=== PATIENT | male | born 1945 | race Caucasian/White ===

== ENCOUNTER 2016-06-08 16:04 | Emergency (ER) | payer OTHER ==
[~2016-06-08] VITALS: Ht 177.8 cm; Wt 76.7 kg
[2016-06-08 16:49] LABS: ADD MIUA? YES; BILIRUBIN NEGATIVE; BLOOD LARGE; COLOR AMBER ((YELLOW)); GLUCOSE (STRIP) NEGATIVE; KETONES 5; LEUKOCYTES SMALL; NITRITE NEGATIVE; PROTEIN (STRIP) >=500; SPECIFIC GRAVITY 1.019 (1.000-1.030); UROBILINOGEN 0.2 MG/DL (0.2-1.0)
[2016-06-08 16:59] LABS: RED BLOOD CELLS TNTC /HPF (0-5); UCUL ADDED? YES
[2016-06-08 17:22] LABS: MCH 31.4 PG (29.0-34.0); MCHC 34.3 G/DL (30.0-36.0); MCV 91.4 FL (86-99); PLATELET COUNT 179 K/uL (156-360); RBC DIS.WIDTH-CV 12.4 % (11.8-14.6); RBC DIS.WIDTH-SD 40.4 % (39-53); RED BLOOD COUNT 4.05 M/uL (4.00-5.50); WHITE BLOOD COUNT 6.3 K/uL (4.1-10.2)
[2016-06-08 17:29] LABS: CHLORIDE 105 mEq/L (99-109); POTASSIUM 3.7 mEq/L (3.7-5.4); SODIUM 141 mEq/L (136-147)
[2016-06-08 17:31] LABS: GLUCOSE 105 mg/dL (70-99)
[2016-06-08 17:33] LABS: ANION GAP 12 MEQ/L (2-14)
[2016-06-08 17:35] LABS: GFR ESTIMATE (CALCULATED) 40 mL/min/
[2016-06-08 17:36] LABS: UREA NITROGEN (BUN) 18 mg/dL (9-23)
[2016-06-08] MEDS ORDERED: ULTRAM50 MG PO (18:31)
[2016-06-08 19:04] VITALS: BP 171/78
== END 2016-06-08 19:06 | disposition home or self-care (01) ==
LOC: EME 16:04
DX: R10.9 Unspecified abdominal pain (principal); R31.9 Hematuria, unspecified
CPT/HCPCS: 74176; 80048; 81003; 85027; 87086 GA; 99281; 99283

== ENCOUNTER 2016-06-30 19:43 | Inpatient (IN) | payer OTHER ==
[~2016-06-30] VITALS: Ht 179.1 cm; Wt 72.8 kg
[~2016-06-30 19:43] MED LIST: ULTRAM50 MG PO
[2016-06-30 20:23] LABS: HEMATOCRIT 30.5 % (38.0-50.0); MCH 31.1 PG (29.0-34.0); MCHC 35.1 G/DL (30.0-36.0); MCV 88.7 FL (86-99); MEAN PLAT.VOLUME 8.6 uM^3 (9.0-12.4); PLATELET COUNT 215 K/uL (156-360); RBC DIS.WIDTH-CV 11.1 % (11.8-14.6); RBC DIS.WIDTH-SD 35.8 % (39-53); RED BLOOD COUNT 3.44 M/uL (4.00-5.50); WHITE BLOOD COUNT 7.2 K/uL (4.1-10.2)
[2016-06-30 20:34] LABS: CHLORIDE 89 mEq/L (99-109); POTASSIUM 3.4 mEq/L (3.7-5.4); SODIUM 122 mEq/L (136-147)
[2016-06-30 20:35] LABS: GLUCOSE 119 mg/dL (70-99)
[2016-06-30 20:37] LABS: ANION GAP 11 MEQ/L (2-14)
[2016-06-30 20:39] LABS: GFR ESTIMATE (CALCULATED) > 59 mL/min/
[2016-06-30 20:40] LABS: UREA NITROGEN (BUN) 12 mg/dL (9-23)
[2016-06-30 23:34] LABS: TOTAL BILIRUBIN 0.9 mg/dL (0.0-1.0)
[2016-06-30 23:35] LABS: ALKALINE PHOSPHATASE 77 IU/L (3-129)
[2016-06-30 23:37] LABS: DIRECT BILIRUBIN 0.3 mg/dL (0.0-0.3)
[2016-06-30 23:39] LABS: LIPASE 20 U/L (1.0-51.0)
[2016-06-30 23:44] LABS: TROP-I INTERPRETATION NEGATIVE; TROPONIN-I < 0.01 ng/mL (0.0-0.30)
[2016-07-01] MEDS ORDERED: TAMSULOSIN HCL0.4 MG PO (00:11)
[2016-07-01] MEDS ORDERED: BETHANECHOL CHL25 MG PO (00:12)
[2016-07-01] MEDS ORDERED: PROSCAR5 MG PO (00:12)
[2016-07-01] MEDS ORDERED: [UNRECOGNIZED DRUG - SUPPLY] MC (00:12)
[2016-07-01 00:18] LABS: CREATINE KINASE 113 IU/L (1-294)
[2016-07-01 01:33] LABS: ADD MIUA? YES; BILIRUBIN NEGATIVE; BLOOD MODERATE; COLOR STRAW ((YELLOW)); GLUCOSE (STRIP) NEGATIVE; KETONES NEGATIVE; LEUKOCYTES LARGE; NITRITE NEGATIVE; PROTEIN (STRIP) NEGATIVE; SPECIFIC GRAVITY 1.002 (1.000-1.030); UROBILINOGEN 0.2 MG/DL (0.2-1.0)
[2016-07-01 02:03] LABS: EPITHELIAL CELLS RARE /HPF; MUCUS NONE SEEN /LPF; RED BLOOD CELLS 0-5 /HPF (0-5); WHITE BLOOD CELLS 20-30 /HPF (0-5)
[2016-07-01 02:04] LABS: BACTERIA 1+ /HPF; CASTS NONE SEEN /LPF; CRYSTALS NONE SEEN; UCUL ADDED? NO
[2016-07-01 03:50] VITALS: BP 124/74; BP 167/75
[2016-07-01 07:29] VITALS: BP 172/73
[2016-07-01 10:36] LABS: HEMATOCRIT 29.9 % (38.0-50.0); MCH 30.7 PG (29.0-34.0); MCHC 34.4 G/DL (30.0-36.0); MEAN PLAT.VOLUME 8.7 uM^3 (9.0-12.4); PLATELET COUNT 197 K/uL (156-360); RBC DIS.WIDTH-CV 11.6 % (11.8-14.6); RBC DIS.WIDTH-SD 37.3 % (39-53); RED BLOOD COUNT 3.36 M/uL (4.00-5.50); WHITE BLOOD COUNT 5.1 K/uL (4.1-10.2)
[2016-07-01 11:06] LABS: ANION GAP 7 MEQ/L (2-14); CHLORIDE 105 MEQ/L (99-109); GFR ESTIMATE (CALCULATED) > 59 mL/min/; GLUCOSE 105 mg/dL (70-99); POTASSIUM 4.6 MEQ/L (3.7-5.4); SAMPLE HEMOLYSIS CHECK 0; SAMPLE ICTERIC CHECK 0; SAMPLE LIPEMIA CHECK 0; SODIUM 136 MEQ/L (136-147); UREA NITROGEN (BUN) 12 mg/dL (9-23)
[2016-07-01 11:14] VITALS: BP 170/72
[2016-07-01] MEDS ORDERED: CEFDINIR300 MG PO (15:26)
== END 2016-07-01 16:29 | disposition home or self-care (01) | DRG 726 ==
LOC: EME 19:43 → EDOF 07-01 02:30 → 2EAST 07-01 03:53
PROVIDERS: Emergency Medicine; Hospitalist
DX: N40.1 Benign prostatic hyperplasia with lower urinary tract symptoms (principal); R33.8 Other retention of urine; E87.1 Hypo-osmolality and hyponatremia; N39.0 Urinary tract infection, site not specified; E86.0 Dehydration; N31.8 Other neuromuscular dysfunction of bladder; Z87.442 Personal history of urinary calculi; Z87.891 Personal history of nicotine dependence
CPT/HCPCS: 71020; 80048; 80076; 81003; 82550; 83690; 84484; 85027; 93005; 99281; 99285; J0692; J1644; J7030; J7050

== ENCOUNTER 2016-08-11 05:37 | Day surgery (SDC) | payer OTHER ==
[~2016-08-11] VITALS: Ht 179.1 cm; Wt 72.7 kg
[~2016-08-11 05:37] MED LIST changes: +BETHANECHOL CHL25 MG PO; +CEFDINIR300 MG PO; +PROSCAR5 MG PO; +TAMSULOSIN HCL0.4 MG PO; +[UNRECOGNIZED DRUG - SUPPLY] MC
[2016-08-11 06:46] VITALS: BP 167/74
[2016-08-11 16:23] VITALS: BP 134/65
[2016-08-11 19:18] VITALS: BP 119/66
[2016-08-11 23:12] VITALS: BP 130/62
[2016-08-12 03:21] VITALS: BP 128/64
[2016-08-12 07:00] LABS: HEMATOCRIT 30.6 % (38.0-50.0); MCV 91.3 FL (86-99)
[2016-08-12 07:40] VITALS: BP 171/73
[2016-08-12 10:37] LABS: ANION GAP 7 MEQ/L (2-14); CHLORIDE 105 MEQ/L (99-109); GFR ESTIMATE (CALCULATED) 53 mL/min/; GLUCOSE 105 mg/dL (70-99); POTASSIUM 3.8 MEQ/L (3.7-5.4); SAMPLE HEMOLYSIS CHECK 0; SAMPLE ICTERIC CHECK 0; SAMPLE LIPEMIA CHECK 0; SODIUM 140 MEQ/L (136-147); UREA NITROGEN (BUN) 14 mg/dL (9-23)
== END 2016-08-12 11:15 | disposition home or self-care (01) ==
LOC: SDC → 2SOUTH 08:37 → 2EASTP 08:37 → 2SOUTH 08:37 → 2EASTP 09:56 → SDC 13:09 → 2EASTP 08-12 11:15
PROVIDERS: Urology
DX: N40.1 Benign prostatic hyperplasia with lower urinary tract symptoms (principal); R33.8 Other retention of urine; N31.2 Flaccid neuropathic bladder, not elsewhere classified; R11.0 Nausea
CPT/HCPCS: 80048; 85014; 85018; 88305; G0378; J2250; J2405; J7120

== ENCOUNTER 2016-11-21 13:41 | Emergency (ER) | payer OTHER ==
[~2016-11-21] VITALS: Ht 177.8 cm; Wt 78.6 kg
[2016-11-21 14:47] LABS: HEMATOCRIT 35.4 % (38.0-50.0); MCH 31.6 PG (29.0-34.0); MCHC 35.9 G/DL (30.0-36.0); MCV 88.1 FL (86-99); MEAN PLAT.VOLUME 8.6 uM^3 (9.0-12.4); PLATELET COUNT 201 K/uL (156-360); RBC DIS.WIDTH-CV 11.7 % (11.8-14.6); RBC DIS.WIDTH-SD 37.8 % (39-53); RED BLOOD COUNT 4.02 M/uL (4.00-5.50); WHITE BLOOD COUNT 6.4 K/uL (4.1-10.2)
[2016-11-21 14:54] LABS: CHLORIDE 92 mEq/L (99-109)
[2016-11-21 14:55] LABS: POTASSIUM 4.2 mEq/L (3.7-5.4); SODIUM 128 mEq/L (136-147)
[2016-11-21 14:56] LABS: GLUCOSE 111 mg/dL (70-99)
[2016-11-21 14:58] LABS: ANION GAP 12 MEQ/L (2-14)
[2016-11-21 15:00] LABS: GFR ESTIMATE (CALCULATED) > 59 mL/min/
[2016-11-21 15:01] LABS: UREA NITROGEN (BUN) 12 mg/dL (9-23)
[2016-11-21 15:31] LABS: ADD MIUA? YES; BILIRUBIN NEGATIVE; BLOOD NEGATIVE; COLOR YELLOW ((YELLOW)); GLUCOSE (STRIP) NEGATIVE; KETONES 5; LEUKOCYTES TRACE; NITRITE NEGATIVE; PROTEIN (STRIP) 30; SPECIFIC GRAVITY 1.012 (1.000-1.030); UROBILINOGEN 0.2 MG/DL (0.2-1.0)
[2016-11-21 15:53] LABS: BACTERIA RARE /HPF; EPITHELIAL CELLS NONE SEEN /HPF; MUCUS TRACE /LPF; RED BLOOD CELLS 0-5 /HPF (0-5); UCUL ADDED? YES
[2016-11-21] MEDS ORDERED: KEFLEX500 MG PO (19:41)
[2016-11-21 19:49] LABS: TROP-I INTERPRETATION NEGATIVE; TROPONIN-I 0.01 ng/mL (0.0-0.30)
[2016-11-21 20:08] VITALS: BP 159/69
== END 2016-11-21 20:09 | disposition home or self-care (01) ==
LOC: EME 13:41
PROVIDERS: Physician Assistant Medical
DX: E86.0 Dehydration (principal); E87.1 Hypo-osmolality and hyponatremia; R42 Dizziness and giddiness; R94.31 Abnormal electrocardiogram [ECG] [EKG]; Z87.442 Personal history of urinary calculi
CPT/HCPCS: 70450; 80048; 81003; 84484; 85027; 87086; 93005; 99281; 99284; J2405; J7030

== ENCOUNTER 2017-12-02 16:19 | Observation (INO) | payer OTHER ==
[~2017-12-02] VITALS: Ht 180.3 cm; Wt 79.5 kg
[~2017-12-02 16:19] MED LIST changes: +KEFLEX500 MG PO
[2017-12-02 18:17] LABS: HEMOGLOBIN 13.1 G/DL (12.5-16.6); MCH 32.8 PG (29.0-34.0); MCHC 35.4 G/DL (30.0-36.0); MCV 92.7 FL (86-99); PLATELET COUNT 180 K/uL (156-360); RBC DIS.WIDTH-CV 12.6 % (11.8-14.6); RED BLOOD COUNT 3.99 M/uL (4.00-5.50)
[2017-12-02 18:29] LABS: ALBUMIN 4.2 g/dL (3.2-4.8); CHLORIDE 96 mEq/L (99-109); POTASSIUM 3.4 mEq/L (3.7-5.4); SODIUM 132 mEq/L (136-147)
[2017-12-02 18:31] LABS: GLUCOSE 116 mg/dL (70-99); TOTAL PROTEIN 7.5 g/dL (6.4-8.3)
[2017-12-02 18:33] LABS: TOTAL BILIRUBIN 0.8 mg/dL (0.0-1.0)
[2017-12-02 18:35] LABS: ALKALINE PHOSPHATASE 63 IU/L (3-129); CREATININE 1.3 mg/dL (0.6-1.3); GFR ESTIMATE (CALCULATED) 57 mL/min/ (58.99-99999)
[2017-12-02 18:36] LABS: UREA NITROGEN (BUN) 18 mg/dL (9-23)
[2017-12-02 18:37] LABS: AST (GOT) 15 IU/L (2-34)
[2017-12-02 18:38] LABS: ALT (GPT) 11 IU/L (3-49)
[2017-12-02 18:43] LABS: TROP-I INTERPRETATION NEGATIVE; TROPONIN-I < 0.01 ng/mL (0.0-0.30)
[2017-12-02] MEDS ORDERED: HYDROCHLOROTHIA25 MG PO (21:03)
[2017-12-02] MEDS ORDERED: LO-DOSE ASPIRIN81 M1 PO (21:04)
[2017-12-02] MEDS ORDERED: SILDENAFIL20 MG PO (21:04)
[2017-12-02 23:01] VITALS: BP 182/84
[2017-12-03 01:11] LABS: TROP-I INTERPRETATION NEGATIVE; TROPONIN-I < 0.01 ng/mL (0.0-0.30)
[2017-12-03 05:56] LABS: TROP-I INTERPRETATION NEGATIVE; TROPONIN-I < 0.01 ng/mL (0.0-0.30)
[2017-12-03 06:07] VITALS: BP 115/68
[2017-12-03 06:15] LABS: CHLORIDE 99 MEQ/L (99-109); CREATININE 1.3 MG/DL (0.6-1.3); GFR ESTIMATE (CALCULATED) 57 mL/min/ (58.99-99999); GLUCOSE 88 mg/dL (70-99); POTASSIUM 3.7 MEQ/L (3.7-5.4); SODIUM 134 MEQ/L (136-147); UREA NITROGEN (BUN) 15 mg/dL (9-23)
[2017-12-03 08:09] VITALS: BP 140/85
[2017-12-03] MEDS ORDERED: LISINOPRIL20 MG PO (11:08)
== END 2017-12-03 11:58 | disposition home or self-care (01) ==
LOC: EME 16:19 → EDOF 22:08 → ENRESERV 22:09 → 4SOUTH 22:56
PROVIDERS: Emergency Medicine; Physician Assistant
DX: I10 Essential (primary) hypertension (principal); E87.1 Hypo-osmolality and hyponatremia; N40.0 Benign prostatic hyperplasia without lower urinary tract symptoms; Z82.49 Family history of ischemic heart disease and other diseases of the circulatory system; E87.6 Hypokalemia; E87.8 Other disorders of electrolyte and fluid balance, not elsewhere classified; Z79.82 Long term (current) use of aspirin
CPT/HCPCS: 71046; 80048; 80053; 83880; 84484; 85027; 93005; 99281; 99285; G0378; J1644